=== PATIENT | female | born 1940 | race Caucasian/White ===

== ENCOUNTER 2018-01-05 00:04 | Emergency (ER) | payer MEDICARE, OTHER ==
[~2018-01-05] VITALS: Ht 154.9 cm; Wt 124.3 kg
[~2018-01-05 00:04] MED LIST: ACET500 PO; ACIDOPHILUS LA1 EACH PO; ALBIPROI; ALBU.083IS; ALBU3IS; ALBU90OI INH; ALBU90OI6 INH; ALBU90OI61 INH; ALBUIS IH; ASCO500 PO; ASPI325; ASPI325EC; ASPI81CH PO; ASPI81EC PO; AZIT250 PO; BECLOI16.8; BENA20; BENEFIBER PO; BUDE10.22 IH; CALC.25 PO; CEFD300 PO; CELE200 PO; CEPH500 PO; CETI5 PO; CETYLOZ PO; CHOL10002; CHOL10002 PO; CLIN150 PO; CROM10OPSO; CYAN1000 PO; CYTOTEC; Cyclobenzaprine5 MG PO; DIAZ5 PO; DILT120ER; DILTIAZEM 120 MG; DIPH50 PO; DOCU100 PO; ELIQUIS2.5 MG PO; FLUO20; FLUSAL1005; FLUSAL2505; FOLI1 PO; FOLIC ACID; FURO40; FURO40 PO; FURO80 PO; GABA100; GABA100 PO; GABA300 PO; GABA600 PO; GABAPENTIN; GABEPENTIN; GLYMET2.5; GLYMET2.5 PO; GLYMET5 PO; GUAR GUM; HYDACE5; HYDACE5 PO; HYDCOR20 PO; HYDR25SUP PR; INS70/30PN SC; INSLI100I SUBQ; INSUASPI SC; INSULANI SUBQ; INSULANPEN; INSULANPEN SC; IPRAIS; IPRAOI INH; IRON325 MG PO; ISODIN20 PO; ISOMON20 PO; ISOMON30; ISOMON30 PO; ISOSORBIDE; Iron Supplemen325 MG PO; KLOR; LANS15EC PO; LANS30EC; LANS30EC PO; LANTUS; LASIX; LEVFLO500; LIDO5TP TOP; LISI20; LISI20 PO; LISI5 PO; LISINOPRIL; LORA1 PO; MELO7.5; META400; METF500C PO; METO25 PO; METO25ER PO; METO5A; METO5A PO; METOPROLOL; MISO100 PO; MONT10T; MULVITMIND PO; NITR.4SL; NITRSPRAY; NOVOLOG; NYST100P; OLME20; OMEP20ER PO; OMEP40CA12 PO; ONDA4ODT; ONDA4ODT MM; OXYACE5T PO; OXYC5 PO; OXYGEN; OXYGEN NS; Oxygen; PANT40 PO; POTA10T PO; POTA8 PO; POTCHL10ER; PRED1; PRED1 PO; PRED20 PO; PRED5 PO; PROM25 PO; Prednisone20 MG PO; Prinivil10 MG PO; QUIN325; RAMI5; RXLORA1 PO; SIME80CH PO; SIMV10 PO; SIMV20; SIMV20 PO; SIMV5 PO; SIMVASTATIN; SPIR25; Senna8.6 MG PO; TIOT18; TRAM50 PO; TRIAOI; Toprol Xl25 MG PO; Tylenol325 MG PO; VERA100; VICOD; VITAMIN B12 PO; VITAMIN D; VITAMIN D PO; Ventolin5 MG/1 ML IH; Vitamin B-121000 MCG PO; WARF2; WARF2 PO; WARF3; WARF3 PO; WARF4; WARF4 PO; WARF5; WARF6; WARFARIN; Zofran Odt4 MG SL; Zofran Odt8 MG SL; [UNRECOGNIZED DRUG - OTHER]; [UNRECOGNIZED DRUG - OTHER]; [UNRECOGNIZED DRUG - OTHER]; [UNRECOGNIZED DRUG - OTHER] GT; [UNRECOGNIZED DRUG - OTHER] PO; [UNRECOGNIZED DRUG - OTHER] TOP
[2018-01-05 00:59] LABS: BASOPHILS ABSOLUTE AUTO 0.02 K/mm3 (0.00-0.23); BASOPHILS PERCENT AUTO 0 % (0-2); EOSINOPHILS ABSOLUTE AUTO 0.03 K/mm3 (0.00-0.68); EOSINOPHILS PERCENT AUTO 0 % (0-6); Hematocrit 27.1 % (33.0-51.0); Hemoglobin 9.5 g/dL (11.5-16.0); IMMATURE GRAN ABSOLUTE AUTO 0.21 K/mm3 (0.00-0.10); IMMATURE GRAN PERCENT AUTO 2 % (0-1); LYMPHOCYTES ABSOLUTE AUTO 1.76 K/mm3 (0.84-5.20); LYMPHOCYTES PERCENT AUTO 13 % (21-46); MONOCYTES ABSOLUTE AUTO 0.65 K/mm3 (0.16-1.47); MONOCYTES PERCENT AUTO 5 % (4-13); Mean Corpuscular HGB 31.8 pg (26.0-34.0); Mean Corpuscular HGB Conc 35.1 g/dL (31.5-36.5); Mean Corpuscular Volume 91 fL (80-100); Mean Platelet Volume 9.2 fL (9.1-12.4); NEUTROPHILS ABSOLUTE AUTO 11.13 K/mm3 (1.96-9.15); NEUTROPHILS PERCENT AUTO 81 % (41-73); Platelet Count 214 K/mm3 (150-400); RDW Coefficient Variation 13.2 % (11.7-14.2); RDW Standard Deviation 43.8 fL (35.1-46.3); Red Blood Cell Count 2.99 M/mm3 (3.80-5.20)
[2018-01-05 01:21] LABS: Alanine Aminotransfer (ALT/SGP 17 U/L (12-78); Albumin, Blood 2.7 g/dL (3.4-5.0); Albumin/Globulin Ratio 0.8 (0.8-1.8); Alk Phos 71 U/L (50-136); Anion Gap 8 mmol/L (6-16); Aspartate Aminotrans (AST/SGOT 7 U/L (12-37); Bilirubin, Total 0.3 mg/dL (0.1-1.0); Blood Urea Nitrogen 23 mg/dL (8-24); Bun/Creatinine Ratio 16.8 (12.0-20.0); CO2, Blood 30 mmol/L (21-32); Calcium, Blood 8.3 mg/dL (8.5-10.1); Chloride, Blood 83 mmol/L (98-108); Creatinine, Blood 1.37 mg/dL (0.40-1.00); Globulin, Blood 3.3 g/dL (2.2-4.0); Glomerular Filtration Rate 39 (60-); Glucose, Blood 345 mg/dL (70-99); Potassium, Blood 4.3 mmol/L (3.5-5.5); Sodium, Blood 121 mmol/L (136-145); Troponin I <0.015 ng/mL (0.000-0.040)
[2018-01-05 01:22] LABS: Base Excess Venous 8.2 mmol/L; Bicarbonate Venous 30.2 mmol/L (24.0-30.0); PCO2 Venous 50.1 mmHg (38-42); PO2 Venous 32.3 mmHg (38-42); pH Blood Venous 7.42 (7.34-7.37)
[2018-01-05 01:25] LABS: Source, Urine Clean Catch
[2018-01-05 01:27] LABS: Bilirubin, Urine Neg (Neg); Blood, Urine 2+ (Neg); Glucose Qualitative, Urine 4+ (Neg); Ketones, Urine Neg (Neg); Leukocyte Esterase, Urine Neg (Neg); Nitrite, Urine Neg (Neg); Protein, Urine 1+ (Neg); Specific Gravity, Urine 1.015 (1.003-1.022); Urobilinogen, Urine NORM (Normal)
[2018-01-05 01:28] LABS: Appearance, Urine Clear (Clear); Color, Urine Yellow (P-Yellow)
[2018-01-05 01:35] LABS: Bacteria Not Seen /hpf; Red Blood Cells, Urine 0-2 /hpf (0-2); Squamous Epithelial Cells Not Seen /hpf (Few); White Blood Cells, Urine Not Seen /hpf (0-5)
[2018-05-14] MEDS ORDERED: NOVOLOG (19:37)
[2018-05-14] MEDS ORDERED: BASAGLAR KWIKPEN (19:38)
[2018-06-11] MEDS ORDERED: ISOMON20 PO (14:28)
[2018-06-20] MEDS ORDERED: LISI5 PO (01:32)
[2018-08-08] MEDS ORDERED: METO25ER PO (16:05)
[2018-08-13] MEDS ORDERED: ACET325 PO (12:16)
[2018-08-13] MEDS ORDERED: Pedi-Dri 100,0060 GM TOP (12:28)
[2018-08-13] MEDS ORDERED: BUME2 PO (12:29)
[2018-08-13] MEDS ORDERED: MONISTAT 35 GM VAG (12:29)
[2018-08-13] MEDS ORDERED: LEVO750 PO (12:30)
[2018-08-18] MEDS ORDERED: Prilosec Otc20 MG PO (16:54)
[2018-09-08] MEDS ORDERED: ATOR40TA PO (12:06)
[2018-09-08] MEDS ORDERED: METO25ER PO (12:07)
[2018-09-15] MEDS ORDERED: ALBU3IS INH (14:48)
[2018-09-20] MEDS ORDERED: PRED20 PO (22:16)
[2018-09-21] MEDS ORDERED: ACTEMRA162 MG/0.9 SC (00:09)
[2018-09-21] MEDS ORDERED: INSULANPEN SC (00:17)
[2018-09-21] MEDS ORDERED: Humalog100 UNIT/1 SC (00:19)
[2018-09-29] MEDS ORDERED: Milk Of Ma400 MG/5 M PO (12:28)
[2018-09-29] MEDS ORDERED: Ferrous Sulfat325 M2 PO (12:29)
[2018-09-30] MEDS ORDERED: ONDA4ODT MM (12:58)
== END 2018-01-05 03:47 | disposition home or self-care (01) ==
LOC: ER 00:04
PROVIDERS: Emergency Medicine
DX: E87.1 Hypo-osmolality and hyponatremia (principal); Z88.0 Allergy status to penicillin; Z88.5 Allergy status to narcotic agent; Z88.1 Allergy status to other antibiotic agents; Z79.899 Other long term (current) drug therapy; Z79.82 Long term (current) use of aspirin; Z79.84 Long term (current) use of oral hypoglycemic drugs; E11.40 Type 2 diabetes mellitus with diabetic neuropathy, unspecified; J44.9 Chronic obstructive pulmonary disease, unspecified; J45.909 Unspecified asthma, uncomplicated
CPT/HCPCS: 36415; 71046; 80053; 81001; 82803; 84484; 85025; 93005; 93010; 96374; 99283; J2405; J7030; P9612

== ENCOUNTER 2018-03-25 12:42 | Emergency (ER) | payer MEDICARE, OTHER ==
[~2018-03-25] VITALS: Ht 154.9 cm; Wt 114.3 kg
[~2018-03-25 12:42] MED LIST changes: +Vitamin B-121000 MCG; -Vitamin B-121000 MCG PO
[2018-03-25 14:22] LABS: BASOPHILS ABSOLUTE AUTO 0.03 K/mm3 (0.00-0.23); BASOPHILS PERCENT AUTO 0 % (0-2); EOSINOPHILS ABSOLUTE AUTO 0.05 K/mm3 (0.00-0.68); EOSINOPHILS PERCENT AUTO 0 % (0-6); Hemoglobin 10.8 g/dL (11.5-16.0); IMMATURE GRAN ABSOLUTE AUTO 0.15 K/mm3 (0.00-0.10); IMMATURE GRAN PERCENT AUTO 1 % (0-1); LYMPHOCYTES ABSOLUTE AUTO 2.31 K/mm3 (0.84-5.20); LYMPHOCYTES PERCENT AUTO 16 % (21-46); MONOCYTES ABSOLUTE AUTO 0.72 K/mm3 (0.16-1.47); MONOCYTES PERCENT AUTO 5 % (4-13); Mean Corpuscular HGB 32.2 pg (26.0-34.0); Mean Corpuscular HGB Conc 34.8 g/dL (31.5-36.5); Mean Corpuscular Volume 93 fL (80-100); Mean Platelet Volume 9.1 fL (9.1-12.4); NEUTROPHILS ABSOLUTE AUTO 10.82 K/mm3 (1.96-9.15); NEUTROPHILS PERCENT AUTO 77 % (41-73); Platelet Count 299 K/mm3 (150-400); RDW Coefficient Variation 12.8 % (11.7-14.2); RDW Standard Deviation 43.4 fL (35.1-46.3); Red Blood Cell Count 3.35 M/mm3 (3.80-5.20); White Blood Cell Count 14.08 K/mm3 (4.00-11.30)
[2018-03-25 14:46] LABS: Alanine Aminotransfer (ALT/SGP 14 U/L (12-78); Albumin, Blood 2.8 g/dL (3.4-5.0); Albumin/Globulin Ratio 0.8 (0.8-1.8); Alk Phos 92 U/L (50-136); Anion Gap 10 mmol/L (6-16); Aspartate Aminotrans (AST/SGOT 7 U/L (12-37); Bilirubin, Total 0.4 mg/dL (0.1-1.0); Blood Urea Nitrogen 16 mg/dL (8-24); Bun/Creatinine Ratio 13.3 (12.0-20.0); CO2, Blood 27 mmol/L (21-32); Calcium, Blood 8.5 mg/dL (8.5-10.1); Chloride, Blood 88 mmol/L (98-108); Globulin, Blood 3.5 g/dL (2.2-4.0); Glomerular Filtration Rate 46 (60-); Glucose, Blood 312 mg/dL (70-99); Potassium, Blood 3.9 mmol/L (3.5-5.5); Sodium, Blood 125 mmol/L (136-145); Total Protein, Blood 6.3 g/dL (6.4-8.2)
[2018-03-25 14:48] LABS: Troponin I <0.015 ng/mL (0.000-0.040)
[2018-03-25 15:15] LABS: Source, Urine Clean Catch
[2018-03-25 15:18] LABS: Bilirubin, Urine Neg (Neg); Blood, Urine 1+ (Neg); Glucose Qualitative, Urine 3+ (Neg); Ketones, Urine Neg (Neg); Leukocyte Esterase, Urine 1+ (Neg); Nitrite, Urine Neg (Neg); Protein, Urine 1+ (Neg); Specific Gravity, Urine 1.015 (1.003-1.022); Urobilinogen, Urine NORM (Normal)
[2018-03-25 15:22] LABS: Appearance, Urine Clear (Clear); Color, Urine Yellow (P-Yellow)
[2018-03-25 15:27] LABS: Bacteria Few /hpf; Squamous Epithelial Cells Few /hpf (Few)
== END 2018-03-25 16:17 | disposition home or self-care (01) ==
LOC: ER 12:42
PROVIDERS: Emergency Medicine; Physician Assistant
DX: R55 Syncope and collapse (principal); E87.1 Hypo-osmolality and hyponatremia; E11.40 Type 2 diabetes mellitus with diabetic neuropathy, unspecified; E66.9 Obesity, unspecified; J44.9 Chronic obstructive pulmonary disease, unspecified; Z79.84 Long term (current) use of oral hypoglycemic drugs; Z88.0 Allergy status to penicillin; Z88.5 Allergy status to narcotic agent; Z88.8 Allergy status to other drugs, medicaments and biological substances; Z88.1 Allergy status to other antibiotic agents; Z79.899 Other long term (current) drug therapy; Z79.82 Long term (current) use of aspirin
CPT/HCPCS: 36415; 80053; 81001; 84484; 85025; 87086; 93005; 93010; 96360; 99283; J7030

== ENCOUNTER 2018-06-11 14:01 | Inpatient (IN) | payer MEDICARE, OTHER ==
[~2018-06-11] VITALS: Ht 154.9 cm; Wt 123.4 kg
[~2018-06-11 14:01] MED LIST changes: +BASAGLAR KWIKPEN; -Vitamin B-121000 MCG; +Vitamin B-121000 MCG PO
[2018-06-11] MEDS ORDERED: ELIQUIS5 MG PO (14:25)
[2018-06-11] MEDS ORDERED: CEFD300 PO (14:27)
[2018-06-11] MEDS ORDERED: RANO500T PO (14:27)
[2018-06-11] MEDS ORDERED: ISODIN20 PO (14:28)
[2018-06-11 15:00] LABS: BASOPHILS ABSOLUTE AUTO 0.02 K/mm3 (0.00-0.23); BASOPHILS PERCENT AUTO 0 % (0-2); EOSINOPHILS ABSOLUTE AUTO 0.05 K/mm3 (0.00-0.68); EOSINOPHILS PERCENT AUTO 0 % (0-6); Hematocrit 31.3 % (33.0-51.0); Hemoglobin 10.5 g/dL (11.5-16.0); IMMATURE GRAN ABSOLUTE AUTO 0.19 K/mm3 (0.00-0.10); IMMATURE GRAN PERCENT AUTO 1 % (0-1); LYMPHOCYTES ABSOLUTE AUTO 1.02 K/mm3 (0.84-5.20); LYMPHOCYTES PERCENT AUTO 6 % (21-46); MONOCYTES ABSOLUTE AUTO 0.71 K/mm3 (0.16-1.47); MONOCYTES PERCENT AUTO 5 % (4-13); Mean Corpuscular HGB 31.4 pg (26.0-34.0); Mean Corpuscular HGB Conc 33.5 g/dL (31.5-36.5); Mean Corpuscular Volume 94 fL (80-100); Mean Platelet Volume 9.4 fL (9.1-12.4); NEUTROPHILS ABSOLUTE AUTO 13.91 K/mm3 (1.96-9.15); NEUTROPHILS PERCENT AUTO 88 % (41-73); Platelet Count 302 K/mm3 (150-400); RDW Coefficient Variation 14.1 % (11.7-14.2); RDW Standard Deviation 47.8 fL (35.1-46.3); Red Blood Cell Count 3.34 M/mm3 (3.80-5.20)
[2018-06-11 15:03] LABS: Albumin, Blood 2.8 g/dL (3.4-5.0); Albumin/Globulin Ratio 0.8 (0.8-1.8); Bilirubin, Total 0.4 mg/dL (0.1-1.0); Bun/Creatinine Ratio 10.2 (12.0-20.0); Calcium, Blood 8.5 mg/dL (8.5-10.1); Creatinine, Blood 0.99 mg/dL (0.40-1.00); Globulin, Blood 3.6 g/dL (2.2-4.0); Potassium, Blood 3.7 mmol/L (3.5-5.5); Total Protein, Blood 6.4 g/dL (6.4-8.2)
[2018-06-11 16:59] LABS: Source, Urine Clean Catch
[2018-06-11 17:13] LABS: Bilirubin, Urine Neg (Neg); Blood, Urine 1+ (Neg); Glucose Qualitative, Urine 2+ (Neg); Ketones, Urine Neg (Neg); Leukocyte Esterase, Urine 1+ (Neg); Nitrite, Urine Neg (Neg); Protein, Urine Neg (Neg); Specific Gravity, Urine 1.005 (1.003-1.022); Urobilinogen, Urine NORM (Normal)
[2018-06-11 17:18] LABS: Appearance, Urine Cloudy (Clear); Color, Urine Yellow (P-Yellow)
[2018-06-11 17:20] LABS: Bacteria Few /hpf; Red Blood Cells, Urine 0-2 /hpf (0-2); Squamous Epithelial Cells Mod /hpf (Few); White Blood Cells, Urine 0-2 /hpf (0-5)
[2018-06-11 20:16] LABS: International Normalized Ratio 1.01; Prothrombin Time Results 10.4 Sec (9.7-11.5)
[2018-06-11] MEDS ORDERED: PRED10 PO (21:01)
[2018-06-12 04:21] LABS: Hematocrit 30.3 % (33.0-51.0); Hemoglobin 10.4 g/dL (11.5-16.0); Mean Corpuscular HGB 31.5 pg (26.0-34.0); Mean Corpuscular HGB Conc 34.3 g/dL (31.5-36.5); Mean Corpuscular Volume 92 fL (80-100); Mean Platelet Volume 9.5 fL (9.1-12.4); Platelet Count 292 K/mm3 (150-400); White Blood Cell Count 15.85 K/mm3 (4.00-11.30)
[2018-06-12 04:36] LABS: Bun/Creatinine Ratio 11.8 (12.0-20.0); Calcium, Blood 8.4 mg/dL (8.5-10.1); Creatinine, Blood 1.1 mg/dL (0.40-1.00); Potassium, Blood 4.1 mmol/L (3.5-5.5)
[2018-06-12 17:33] LABS: Glucose, Blood 469 mg/dL (70-99)
[2018-06-13 04:42] LABS: BASOPHILS ABSOLUTE AUTO 0.02 K/mm3 (0.00-0.23); BASOPHILS PERCENT AUTO 0 % (0-2); EOSINOPHILS ABSOLUTE AUTO 0.01 K/mm3 (0.00-0.68); EOSINOPHILS PERCENT AUTO 0 % (0-6); Hematocrit 27.1 % (33.0-51.0); Hemoglobin 9.2 g/dL (11.5-16.0); IMMATURE GRAN ABSOLUTE AUTO 0.24 K/mm3 (0.00-0.10); IMMATURE GRAN PERCENT AUTO 1 % (0-1); LYMPHOCYTES ABSOLUTE AUTO 1.66 K/mm3 (0.84-5.20); LYMPHOCYTES PERCENT AUTO 8 % (21-46); MONOCYTES ABSOLUTE AUTO 0.93 K/mm3 (0.16-1.47); MONOCYTES PERCENT AUTO 4 % (4-13); Mean Corpuscular HGB 31.4 pg (26.0-34.0); Mean Corpuscular HGB Conc 33.9 g/dL (31.5-36.5); Mean Corpuscular Volume 93 fL (80-100); Mean Platelet Volume 9.3 fL (9.1-12.4); NEUTROPHILS ABSOLUTE AUTO 18.38 K/mm3 (1.96-9.15); NEUTROPHILS PERCENT AUTO 87 % (41-73); Platelet Count 281 K/mm3 (150-400); RDW Coefficient Variation 13.9 % (11.7-14.2); RDW Standard Deviation 47.1 fL (35.1-46.3); Red Blood Cell Count 2.93 M/mm3 (3.80-5.20); White Blood Cell Count 21.24 K/mm3 (4.00-11.30)
[2018-06-13 05:03] LABS: Bun/Creatinine Ratio 15.3 (12.0-20.0); Calcium, Blood 8.6 mg/dL (8.5-10.1); Creatinine, Blood 1.31 mg/dL (0.40-1.00); Potassium, Blood 3.8 mmol/L (3.5-5.5)
[2018-06-14 10:07] LABS: Hematocrit 28.9 % (33.0-51.0); Hemoglobin 9.6 g/dL (11.5-16.0)
[2018-06-14] MEDS ORDERED: Cephalexin500 MG PO (11:17)
[2018-06-14] MEDS ORDERED: Humalog100 UNIT/1 SC (11:18)
[2018-06-14] MEDS ORDERED: INSDET100 SC (11:19)
== END 2018-06-14 13:06 | disposition home or self-care (01) | DRG 189 ==
LOC: ER 14:01 → PCU 14:02 → MEDS 20:25 → PCU 20:41 → MEDS 06-13 14:49 → ENPENDDIS 06-14 09:41 → MEDS 06-14 13:06
PROVIDERS: Emergency Medicine; Hospitalist; Nurse Practitioner Acute Care
DX: J96.21 Acute and chronic respiratory failure with hypoxia (principal); I13.0 Hypertensive heart and chronic kidney disease with heart failure and stage 1 through stage 4 chronic kidney disease, or unspecified chronic kidney disease; I50.40 Unspecified combined systolic (congestive) and diastolic (congestive) heart failure; Z68.43 Body mass index [BMI] 50.0-59.9, adult; N39.0 Urinary tract infection, site not specified; E87.1 Hypo-osmolality and hyponatremia; J44.1 Chronic obstructive pulmonary disease with (acute) exacerbation; B96.20 Unspecified Escherichia coli [E. coli] as the cause of diseases classified elsewhere; I48.91 Unspecified atrial fibrillation; I25.10 Atherosclerotic heart disease of native coronary artery without angina pectoris; M35.3 Polymyalgia rheumatica; E11.22 Type 2 diabetes mellitus with diabetic chronic kidney disease; N18.9 Chronic kidney disease, unspecified; E11.40 Type 2 diabetes mellitus with diabetic neuropathy, unspecified; M19.90 Unspecified osteoarthritis, unspecified site; E66.01 Morbid (severe) obesity due to excess calories; I89.0 Lymphedema, not elsewhere classified; K64.9 Unspecified hemorrhoids; M31.6 Other giant cell arteritis; Z79.4 Long term (current) use of insulin; Z87.11 Personal history of peptic ulcer disease; Z93.3 Colostomy status; Z99.81 Dependence on supplemental oxygen; Z86.718 Personal history of other venous thrombosis and embolism; Z79.01 Long term (current) use of anticoagulants; Z79.84 Long term (current) use of oral hypoglycemic drugs; Z79.82 Long term (current) use of aspirin; Z79.899 Other long term (current) drug therapy; Z88.1 Allergy status to other antibiotic agents; Z88.5 Allergy status to narcotic agent; Z88.0 Allergy status to penicillin; Z88.8 Allergy status to other drugs, medicaments and biological substances
CPT/HCPCS: 36415; 71046; 74176; 80048; 80053; 81001; 82947; 83735; 83880; 84484; 85014; 85018; 85025; 85027; 85610; 87077; 87086; 87186; 93306; 94640; 94760; 96365; 96375; 99285-25; J0456; J1940; J2930; J7050

== ENCOUNTER 2018-06-20 00:55 | Emergency (ER) | payer MEDICARE, OTHER ==
[~2018-06-20] VITALS: Ht 154.9 cm; Wt 124.7 kg
[~2018-06-20 00:55] MED LIST changes: +Cephalexin500 MG PO; +ELIQUIS5 MG PO; +Humalog100 UNIT/1 SC; +INSDET100 SC; +PRED10 PO; +RANO500T PO
[2018-06-20 01:26] LABS: BASOPHILS ABSOLUTE AUTO 0.03 K/mm3 (0.00-0.23); BASOPHILS PERCENT AUTO 0 % (0-2); EOSINOPHILS PERCENT AUTO 1 % (0-6); Hematocrit 29.4 % (33.0-51.0); Hemoglobin 10.3 g/dL (11.5-16.0); IMMATURE GRAN ABSOLUTE AUTO 0.13 K/mm3 (0.00-0.10); IMMATURE GRAN PERCENT AUTO 1 % (0-1); LYMPHOCYTES ABSOLUTE AUTO 2.02 K/mm3 (0.84-5.20); LYMPHOCYTES PERCENT AUTO 14 % (21-46); MONOCYTES ABSOLUTE AUTO 0.64 K/mm3 (0.16-1.47); MONOCYTES PERCENT AUTO 5 % (4-13); Mean Corpuscular HGB 31.6 pg (26.0-34.0); Mean Platelet Volume 8.9 fL (9.1-12.4); NEUTROPHILS ABSOLUTE AUTO 11.45 K/mm3 (1.96-9.15); NEUTROPHILS PERCENT AUTO 80 % (41-73); Platelet Count 256 K/mm3 (150-400); RDW Coefficient Variation 13.4 % (11.7-14.2); RDW Standard Deviation 44.9 fL (35.1-46.3); Red Blood Cell Count 3.26 M/mm3 (3.80-5.20); White Blood Cell Count 14.37 K/mm3 (4.00-11.30)
[2018-06-20 01:29] LABS: Mean Corpuscular Volume 90 fL (80-100)
[2018-06-20] MEDS ORDERED: LANS30EC PO (01:31)
[2018-06-20] MEDS ORDERED: LISI5 (01:32)
[2018-06-20 01:42] LABS: Albumin, Blood 2.8 g/dL (3.4-5.0); Albumin/Globulin Ratio 0.8 (0.8-1.8); Bilirubin, Total 0.5 mg/dL (0.1-1.0); Bun/Creatinine Ratio 11.2 (12.0-20.0); Calcium, Blood 7.4 mg/dL (8.5-10.1); Creatinine, Blood 1.25 mg/dL (0.40-1.00); Globulin, Blood 3.7 g/dL (2.2-4.0); Potassium, Blood 3.4 mmol/L (3.5-5.5); Total Protein, Blood 6.5 g/dL (6.4-8.2)
[2018-06-20 03:58] LABS: Source, Urine Clean Catch
[2018-06-20 03:59] LABS: Bilirubin, Urine Neg (Neg); Blood, Urine 1+ (Neg); Glucose Qualitative, Urine Neg (Neg); Ketones, Urine Neg (Neg); Leukocyte Esterase, Urine Neg (Neg); Nitrite, Urine Neg (Neg); Protein, Urine 1+ (Neg); Urobilinogen, Urine NORM (Normal)
[2018-06-20 04:05] LABS: Appearance, Urine Clear (Clear); Bacteria Rare /hpf; Color, Urine Yellow (P-Yellow); Squamous Epithelial Cells Few /hpf (Few); White Blood Cells, Urine Not Seen /hpf (0-5)
[2018-06-20] MEDS ORDERED: ONDA4ODT MM (04:23)
== END 2018-06-20 04:40 | disposition home or self-care (01) ==
LOC: ER 00:55
PROVIDERS: Emergency Medicine
DX: R10.32 Left lower quadrant pain (principal); E87.1 Hypo-osmolality and hyponatremia; E83.51 Hypocalcemia; D64.9 Anemia, unspecified; J44.9 Chronic obstructive pulmonary disease, unspecified; E11.40 Type 2 diabetes mellitus with diabetic neuropathy, unspecified; Z88.0 Allergy status to penicillin; Z88.5 Allergy status to narcotic agent; Z91.048 Other nonmedicinal substance allergy status; Z88.1 Allergy status to other antibiotic agents; Z88.8 Allergy status to other drugs, medicaments and biological substances; Z79.899 Other long term (current) drug therapy; Z79.82 Long term (current) use of aspirin; Z79.4 Long term (current) use of insulin
CPT/HCPCS: 36415; 51702; 74176; 80053; 81001; 85025; 96361; 96365; 96375; 99285-25; J0610; J2405; J7030

== ENCOUNTER 2018-08-14 14:18 | Inpatient (IN) | payer MEDICARE, OTHER ==
[~2018-08-14] VITALS: Ht 154.9 cm; Wt 110.8 kg
[~2018-08-14 14:18] MED LIST changes: +ACET325 PO; +BUME2 PO; +LEVO750 PO; +MONISTAT 35 GM VAG; +Pedi-Dri 100,0060 GM TOP
[2018-08-14 15:38] LABS: BASOPHILS ABSOLUTE AUTO 0.03 K/mm3 (0.00-0.23); BASOPHILS PERCENT AUTO 0 % (0-2); EOSINOPHILS ABSOLUTE AUTO 0.11 K/mm3 (0.00-0.68); EOSINOPHILS PERCENT AUTO 1 % (0-6); Hematocrit 25.8 % (33.0-51.0); Hemoglobin 8.8 g/dL (11.5-16.0); IMMATURE GRAN ABSOLUTE AUTO 0.12 K/mm3 (0.00-0.10); IMMATURE GRAN PERCENT AUTO 1 % (0-1); LYMPHOCYTES ABSOLUTE AUTO 1.19 K/mm3 (0.84-5.20); LYMPHOCYTES PERCENT AUTO 12 % (21-46); MONOCYTES ABSOLUTE AUTO 0.64 K/mm3 (0.16-1.47); MONOCYTES PERCENT AUTO 7 % (4-13); Mean Corpuscular HGB 31.7 pg (26.0-34.0); Mean Corpuscular HGB Conc 34.1 g/dL (31.5-36.5); Mean Corpuscular Volume 93 fL (80-100); NEUTROPHILS ABSOLUTE AUTO 7.48 K/mm3 (1.96-9.15); NEUTROPHILS PERCENT AUTO 78 % (41-73); Platelet Count 341 K/mm3 (150-400); RDW Coefficient Variation 14.4 % (11.7-14.2); RDW Standard Deviation 48.7 fL (35.1-46.3); Red Blood Cell Count 2.78 M/mm3 (3.80-5.20); White Blood Cell Count 9.57 K/mm3 (4.00-11.30)
[2018-08-14 15:40] LABS: Base Excess Venous 4.4 mmol/L; Bicarbonate Venous 28.1 mmol/L (24.0-30.0); PCO2 Venous 40.1 mmHg (38-42); PO2 Venous 143 mmHg (38-42); pH Blood Venous 7.46 (7.34-7.37)
[2018-08-14 15:59] LABS: Albumin, Blood 2.4 g/dL (3.4-5.0); Albumin/Globulin Ratio 0.7 (0.8-1.8); Bilirubin, Total 0.3 mg/dL (0.1-1.0); Bun/Creatinine Ratio 8.3 (12.0-20.0); Calcium, Blood 7.5 mg/dL (8.5-10.1); Creatinine, Blood 1.2 mg/dL (0.40-1.00); Globulin, Blood 3.4 g/dL (2.2-4.0); Potassium, Blood 4.3 mmol/L (3.5-5.5); Total Protein, Blood 5.8 g/dL (6.4-8.2); Troponin I 0.063 ng/mL (0.000-0.040)
[2018-08-14 18:09] LABS: Magnesium, Blood 1.4 mg/dL (1.6-2.4); Troponin I 0.064 ng/mL (0.000-0.040)
[2018-08-15 03:59] LABS: Source, Urine Catheter
[2018-08-15 04:01] LABS: Bilirubin, Urine Neg (Neg); Blood, Urine 1+ (Neg); Glucose Qualitative, Urine 2+ (Neg); Ketones, Urine 2+ (Neg); Leukocyte Esterase, Urine Neg (Neg); Nitrite, Urine Neg (Neg); Protein, Urine 2+ (Neg); Urobilinogen, Urine NORM (Normal)
[2018-08-15 04:10] LABS: Amorphous Light (0-Heavy); Appearance, Urine Clear (Clear); Bacteria Not Seen /hpf; Color, Urine Yellow (P-Yellow); Red Blood Cells, Urine Rare /hpf (0-2); Squamous Epithelial Cells Not Seen /hpf (Few); White Blood Cells, Urine Not Seen /hpf (0-5)
[2018-08-15 06:14] LABS: BASOPHILS ABSOLUTE AUTO 0.01 K/mm3 (0.00-0.23); BASOPHILS PERCENT AUTO 0 % (0-2); EOSINOPHILS ABSOLUTE AUTO 0.01 K/mm3 (0.00-0.68); EOSINOPHILS PERCENT AUTO 0 % (0-6); Hematocrit 26.8 % (33.0-51.0); IMMATURE GRAN ABSOLUTE AUTO 0.07 K/mm3 (0.00-0.10); IMMATURE GRAN PERCENT AUTO 1 % (0-1); LYMPHOCYTES ABSOLUTE AUTO 0.27 K/mm3 (0.84-5.20); LYMPHOCYTES PERCENT AUTO 4 % (21-46); MONOCYTES ABSOLUTE AUTO 0.04 K/mm3 (0.16-1.47); MONOCYTES PERCENT AUTO 1 % (4-13); Mean Corpuscular HGB 30.8 pg (26.0-34.0); Mean Corpuscular HGB Conc 33.6 g/dL (31.5-36.5); Mean Corpuscular Volume 92 fL (80-100); Mean Platelet Volume 8.9 fL (9.1-12.4); NEUTROPHILS ABSOLUTE AUTO 6.78 K/mm3 (1.96-9.15); NEUTROPHILS PERCENT AUTO 94 % (41-73); Platelet Count 317 K/mm3 (150-400); RDW Coefficient Variation 14.4 % (11.7-14.2); RDW Standard Deviation 48.1 fL (35.1-46.3); Red Blood Cell Count 2.92 M/mm3 (3.80-5.20); White Blood Cell Count 7.18 K/mm3 (4.00-11.30)
[2018-08-15 06:36] LABS: Bun/Creatinine Ratio 9.3 (12.0-20.0); Calcium, Blood 7.5 mg/dL (8.5-10.1); Creatinine, Blood 1.18 mg/dL (0.40-1.00); Potassium, Blood 5.2 mmol/L (3.5-5.5); Troponin I 0.03 ng/mL (0.000-0.040)
[2018-08-16 03:56] LABS: BASOPHILS PERCENT AUTO 0 % (0-2); EOSINOPHILS PERCENT AUTO 0 % (0-6); Hematocrit 27.2 % (33.0-51.0); Hemoglobin 9.1 g/dL (11.5-16.0); IMMATURE GRAN ABSOLUTE AUTO 0.19 K/mm3 (0.00-0.10); IMMATURE GRAN PERCENT AUTO 2 % (0-1); LYMPHOCYTES ABSOLUTE AUTO 0.35 K/mm3 (0.84-5.20); LYMPHOCYTES PERCENT AUTO 4 % (21-46); MONOCYTES ABSOLUTE AUTO 0.19 K/mm3 (0.16-1.47); MONOCYTES PERCENT AUTO 2 % (4-13); Mean Corpuscular HGB Conc 33.5 g/dL (31.5-36.5); Mean Corpuscular Volume 96 fL (80-100); Mean Platelet Volume 8.7 fL (9.1-12.4); NEUTROPHILS ABSOLUTE AUTO 8.48 K/mm3 (1.96-9.15); NEUTROPHILS PERCENT AUTO 92 % (41-73); Platelet Count 325 K/mm3 (150-400); RDW Coefficient Variation 14.5 % (11.7-14.2); RDW Standard Deviation 50.8 fL (35.1-46.3); Red Blood Cell Count 2.84 M/mm3 (3.80-5.20); White Blood Cell Count 9.21 K/mm3 (4.00-11.30)
[2018-08-16 04:15] LABS: Albumin, Blood 2.5 g/dL (3.4-5.0); Anion Gap 8 mmol/L (6-16); Blood Urea Nitrogen 16 mg/dL (8-24); Bun/Creatinine Ratio 13.9 (12.0-20.0); CO2, Blood 27 mmol/L (21-32); Calcium, Blood 7.5 mg/dL (8.5-10.1); Chloride, Blood 89 mmol/L (98-108); Creatinine, Blood 1.15 mg/dL (0.40-1.00); Glomerular Filtration Rate 48 (60-); Glucose, Blood 242 mg/dL (70-99); Phosphorus, Blood 3.4 mg/dL (2.5-4.9); Potassium, Blood 4.8 mmol/L (3.5-5.5); Sodium, Blood 124 mmol/L (136-145)
[2018-08-16 18:01] LABS: Vancomycin, Trough 15.4 ug/mL (5.0-10.0)
[2018-08-17 05:37] LABS: Albumin, Blood 2.6 g/dL (3.4-5.0); Anion Gap 8 mmol/L (6-16); Blood Urea Nitrogen 21 mg/dL (8-24); Bun/Creatinine Ratio 17.5 (12.0-20.0); CO2, Blood 29 mmol/L (21-32); Calcium, Blood 7.6 mg/dL (8.5-10.1); Chloride, Blood 91 mmol/L (98-108); Glomerular Filtration Rate 46 (60-); Glucose, Blood 263 mg/dL (70-99); Phosphorus, Blood 2.9 mg/dL (2.5-4.9); Potassium, Blood 4.6 mmol/L (3.5-5.5); Sodium, Blood 128 mmol/L (136-145)
[2018-08-18 05:37] LABS: BASOPHILS PERCENT AUTO 0 % (0-2); EOSINOPHILS PERCENT AUTO 0 % (0-6); Hematocrit 27.1 % (33.0-51.0); Hemoglobin 8.8 g/dL (11.5-16.0); IMMATURE GRAN ABSOLUTE AUTO 0.13 K/mm3 (0.00-0.10); IMMATURE GRAN PERCENT AUTO 2 % (0-1); LYMPHOCYTES ABSOLUTE AUTO 0.37 K/mm3 (0.84-5.20); LYMPHOCYTES PERCENT AUTO 5 % (21-46); MONOCYTES ABSOLUTE AUTO 0.15 K/mm3 (0.16-1.47); MONOCYTES PERCENT AUTO 2 % (4-13); Mean Corpuscular HGB 30.8 pg (26.0-34.0); Mean Corpuscular HGB Conc 32.5 g/dL (31.5-36.5); Mean Corpuscular Volume 95 fL (80-100); NEUTROPHILS ABSOLUTE AUTO 6.16 K/mm3 (1.96-9.15); NEUTROPHILS PERCENT AUTO 91 % (41-73); Platelet Count 291 K/mm3 (150-400); RDW Coefficient Variation 14.6 % (11.7-14.2); Red Blood Cell Count 2.86 M/mm3 (3.80-5.20); White Blood Cell Count 6.81 K/mm3 (4.00-11.30)
[2018-08-18 06:17] LABS: Magnesium, Blood 2.1 mg/dL (1.6-2.4)
[2018-08-18 06:25] LABS: Bun/Creatinine Ratio 18.8 (12.0-20.0); Calcium, Blood 7.6 mg/dL (8.5-10.1); Creatinine, Blood 1.28 mg/dL (0.40-1.00); Potassium, Blood 4.3 mmol/L (3.5-5.5)
[2018-08-18] MEDS ORDERED: OMEPRAZOLE MAGN20 MG PO (16:53)
[2018-08-18] MEDS ORDERED: Prilosec Otc20 MG (16:54)
[2018-08-19 04:46] LABS: BASOPHILS PERCENT AUTO 0 % (0-2); EOSINOPHILS ABSOLUTE AUTO 0.01 K/mm3 (0.00-0.68); EOSINOPHILS PERCENT AUTO 0 % (0-6); Hematocrit 27.5 % (33.0-51.0); Hemoglobin 8.9 g/dL (11.5-16.0); IMMATURE GRAN ABSOLUTE AUTO 0.16 K/mm3 (0.00-0.10); IMMATURE GRAN PERCENT AUTO 2 % (0-1); LYMPHOCYTES ABSOLUTE AUTO 1.28 K/mm3 (0.84-5.20); LYMPHOCYTES PERCENT AUTO 13 % (21-46); MONOCYTES ABSOLUTE AUTO 0.66 K/mm3 (0.16-1.47); MONOCYTES PERCENT AUTO 7 % (4-13); Mean Corpuscular HGB 30.5 pg (26.0-34.0); Mean Corpuscular HGB Conc 32.4 g/dL (31.5-36.5); Mean Corpuscular Volume 94 fL (80-100); Mean Platelet Volume 8.8 fL (9.1-12.4); NEUTROPHILS ABSOLUTE AUTO 7.56 K/mm3 (1.96-9.15); NEUTROPHILS PERCENT AUTO 78 % (41-73); Platelet Count 266 K/mm3 (150-400); RDW Coefficient Variation 14.4 % (11.7-14.2); RDW Standard Deviation 50.4 fL (35.1-46.3); Red Blood Cell Count 2.92 M/mm3 (3.80-5.20); White Blood Cell Count 9.67 K/mm3 (4.00-11.30)
[2018-08-19 05:13] LABS: Albumin, Blood 2.8 g/dL (3.4-5.0); Anion Gap 8 mmol/L (6-16); Blood Urea Nitrogen 30 mg/dL (8-24); Bun/Creatinine Ratio 23.3 (12.0-20.0); CO2, Blood 33 mmol/L (21-32); Calcium, Blood 8.3 mg/dL (8.5-10.1); Chloride, Blood 90 mmol/L (98-108); Creatinine, Blood 1.29 mg/dL (0.40-1.00); Glomerular Filtration Rate 42 (60-); Glucose, Blood 261 mg/dL (70-99); Phosphorus, Blood 2.9 mg/dL (2.5-4.9); Potassium, Blood 4.2 mmol/L (3.5-5.5); Sodium, Blood 131 mmol/L (136-145)
[2018-08-20 06:36] LABS: Hematocrit 28.8 % (33.0-51.0); Hemoglobin 9.4 g/dL (11.5-16.0)
[2018-08-20 06:51] LABS: Calcium, Blood 8.5 mg/dL (8.5-10.1); Creatinine, Blood 1.29 mg/dL (0.40-1.00); Potassium, Blood 3.7 mmol/L (3.5-5.5)
[2018-08-20 11:13] LABS: Bun/Creatinine Ratio 21.5 (12.0-20.0); Calcium, Blood 8.3 mg/dL (8.5-10.1); Creatinine, Blood 1.49 mg/dL (0.40-1.00); Potassium, Blood 3.3 mmol/L (3.5-5.5)
[2018-08-21 05:39] LABS: BASOPHILS PERCENT AUTO 0 % (0-2); EOSINOPHILS ABSOLUTE AUTO 0.02 K/mm3 (0.00-0.68); EOSINOPHILS PERCENT AUTO 0 % (0-6); Hemoglobin 9.1 g/dL (11.5-16.0); IMMATURE GRAN ABSOLUTE AUTO 0.06 K/mm3 (0.00-0.10); IMMATURE GRAN PERCENT AUTO 1 % (0-1); LYMPHOCYTES ABSOLUTE AUTO 1.26 K/mm3 (0.84-5.20); LYMPHOCYTES PERCENT AUTO 15 % (21-46); MONOCYTES ABSOLUTE AUTO 0.41 K/mm3 (0.16-1.47); MONOCYTES PERCENT AUTO 5 % (4-13); Mean Corpuscular HGB 31.6 pg (26.0-34.0); Mean Corpuscular HGB Conc 33.7 g/dL (31.5-36.5); Mean Corpuscular Volume 94 fL (80-100); Mean Platelet Volume 8.7 fL (9.1-12.4); NEUTROPHILS ABSOLUTE AUTO 6.67 K/mm3 (1.96-9.15); NEUTROPHILS PERCENT AUTO 79 % (41-73); Platelet Count 226 K/mm3 (150-400); RDW Coefficient Variation 14.2 % (11.7-14.2); Red Blood Cell Count 2.88 M/mm3 (3.80-5.20); White Blood Cell Count 8.42 K/mm3 (4.00-11.30)
[2018-08-21 06:00] LABS: Albumin, Blood 2.7 g/dL (3.4-5.0); Bilirubin, Total 0.5 mg/dL (0.1-1.0); Bun/Creatinine Ratio 22.5 (12.0-20.0); Calcium, Blood 8.5 mg/dL (8.5-10.1); Creatinine, Blood 1.38 mg/dL (0.40-1.00); Globulin, Blood 2.7 g/dL (2.2-4.0); Magnesium, Blood 1.8 mg/dL (1.6-2.4); Potassium, Blood 3.4 mmol/L (3.5-5.5); Total Protein, Blood 5.4 g/dL (6.4-8.2)
[2018-08-22 04:49] LABS: BASOPHILS PERCENT AUTO 0 % (0-2); EOSINOPHILS ABSOLUTE AUTO 0.03 K/mm3 (0.00-0.68); EOSINOPHILS PERCENT AUTO 0 % (0-6); Hematocrit 27.4 % (33.0-51.0); Hemoglobin 9.2 g/dL (11.5-16.0); IMMATURE GRAN ABSOLUTE AUTO 0.05 K/mm3 (0.00-0.10); IMMATURE GRAN PERCENT AUTO 1 % (0-1); LYMPHOCYTES ABSOLUTE AUTO 1.57 K/mm3 (0.84-5.20); LYMPHOCYTES PERCENT AUTO 19 % (21-46); MONOCYTES ABSOLUTE AUTO 0.48 K/mm3 (0.16-1.47); MONOCYTES PERCENT AUTO 6 % (4-13); Mean Corpuscular HGB 31.8 pg (26.0-34.0); Mean Corpuscular HGB Conc 33.6 g/dL (31.5-36.5); Mean Corpuscular Volume 95 fL (80-100); Mean Platelet Volume 8.6 fL (9.1-12.4); NEUTROPHILS ABSOLUTE AUTO 6.11 K/mm3 (1.96-9.15); NEUTROPHILS PERCENT AUTO 74 % (41-73); Platelet Count 212 K/mm3 (150-400); RDW Coefficient Variation 14.2 % (11.7-14.2); Red Blood Cell Count 2.89 M/mm3 (3.80-5.20); White Blood Cell Count 8.24 K/mm3 (4.00-11.30)
[2018-08-22 05:13] LABS: Albumin, Blood 2.7 g/dL (3.4-5.0); Albumin/Globulin Ratio 1.1 (0.8-1.8); Bilirubin, Total 0.4 mg/dL (0.1-1.0); Creatinine, Blood 1.52 mg/dL (0.40-1.00); Globulin, Blood 2.5 g/dL (2.2-4.0); Potassium, Blood 3.6 mmol/L (3.5-5.5); Total Protein, Blood 5.2 g/dL (6.4-8.2)
[2018-08-22] MEDS ORDERED: ISOMON20 PO (11:10)
[2018-08-22] MEDS ORDERED: LIDO700A20 TOP (11:10)
[2018-08-22] MEDS ORDERED: DELTASONE20 MG PO (11:11)
[2018-08-22] MEDS ORDERED: METO25ER PO (11:12)
[2018-08-22] MEDS ORDERED: SPIR25 PO (11:13)
[2018-08-22] MEDS ORDERED: DOCU100 PO (11:14)
[2018-08-22] MEDS ORDERED: BENZ100A PO (11:20)
[2018-08-22] MEDS ORDERED: Calcium Carbon500 M1 PO (11:22)
[2018-08-22] MEDS ORDERED: CALC.25 PO (11:22)
[2018-08-22] MEDS ORDERED: Humalog100 UNIT/1 SC (11:24)
[2018-08-22] MEDS ORDERED: GUAI600T33 PO ×2 (11:28→12:40)
[2018-08-22] MEDS ORDERED: MICO100S VAG (12:41)
[2018-08-22] MEDS ORDERED: ALBU3IS INH (12:43)
[2018-08-23 04:20] LABS: Bun/Creatinine Ratio 25.8 (12.0-20.0); Calcium, Blood 9.5 mg/dL (8.5-10.1); Creatinine, Blood 1.51 mg/dL (0.40-1.00); Potassium, Blood 3.7 mmol/L (3.5-5.5)
[2018-08-23 15:50] LABS: Albumin, Blood 2.9 g/dL (3.4-5.0); Anion Gap 10 mmol/L (6-16); Blood Urea Nitrogen 49 mg/dL (8-24); Bun/Creatinine Ratio 26.1 (12.0-20.0); CO2, Blood 39 mmol/L (21-32); Calcium, Blood 9.6 mg/dL (8.5-10.1); Chloride, Blood 82 mmol/L (98-108); Creatinine, Blood 1.88 mg/dL (0.40-1.00); Glomerular Filtration Rate 27 (60-); Glucose, Blood 335 mg/dL (70-99); Magnesium, Blood 1.9 mg/dL (1.6-2.4); Phosphorus, Blood 6.7 mg/dL (2.5-4.9); Potassium, Blood 4.2 mmol/L (3.5-5.5); Sodium, Blood 131 mmol/L (136-145); Troponin I 0.029 ng/mL (0.000-0.040)
[2018-08-23 15:56] LABS: BASOPHILS ABSOLUTE AUTO 0.02 K/mm3 (0.00-0.23); BASOPHILS PERCENT AUTO 0 % (0-2); EOSINOPHILS ABSOLUTE AUTO 0.02 K/mm3 (0.00-0.68); EOSINOPHILS PERCENT AUTO 0 % (0-6); Hemoglobin 10.7 g/dL (11.5-16.0); IMMATURE GRAN ABSOLUTE AUTO 0.12 K/mm3 (0.00-0.10); IMMATURE GRAN PERCENT AUTO 1 % (0-1); LYMPHOCYTES ABSOLUTE AUTO 0.52 K/mm3 (0.84-5.20); LYMPHOCYTES PERCENT AUTO 3 % (21-46); MONOCYTES ABSOLUTE AUTO 0.58 K/mm3 (0.16-1.47); MONOCYTES PERCENT AUTO 3 % (4-13); Mean Corpuscular HGB 31.4 pg (26.0-34.0); Mean Corpuscular HGB Conc 32.4 g/dL (31.5-36.5); Mean Corpuscular Volume 97 fL (80-100); Mean Platelet Volume 9.2 fL (9.1-12.4); NEUTROPHILS ABSOLUTE AUTO 17.79 K/mm3 (1.96-9.15); NEUTROPHILS PERCENT AUTO 94 % (41-73); Platelet Count 241 K/mm3 (150-400); RDW Coefficient Variation 14.4 % (11.7-14.2); RDW Standard Deviation 51.5 fL (35.1-46.3); Red Blood Cell Count 3.41 M/mm3 (3.80-5.20); White Blood Cell Count 19.05 K/mm3 (4.00-11.30)
[2018-08-24 08:32] LABS: Blood, Urine 1+ (Neg); Glucose Qualitative, Urine Neg (Neg); Ketones, Urine Neg (Neg); Leukocyte Esterase, Urine 1+ (Neg); Nitrite, Urine Neg (Neg); Protein, Urine 1+ (Neg); Urobilinogen, Urine NORM (Normal)
[2018-08-24 08:47] LABS: Appearance, Urine Hazy (Clear); Bacteria Rare /hpf; Bilirubin, Urine 1+ (Neg); Color, Urine Yellow (P-Yellow); Red Blood Cells, Urine 0-2 /hpf (0-2); Squamous Epithelial Cells Many /hpf (Few); White Blood Cells, Urine 0-2 /hpf (0-5)
[2018-08-25 04:34] LABS: Hematocrit 26.6 % (33.0-51.0); Hemoglobin 8.8 g/dL (11.5-16.0); Mean Corpuscular HGB 31.8 pg (26.0-34.0); Mean Corpuscular HGB Conc 33.1 g/dL (31.5-36.5); Mean Corpuscular Volume 96 fL (80-100); Mean Platelet Volume 9.6 fL (9.1-12.4); Platelet Count 181 K/mm3 (150-400); RDW Coefficient Variation 14.2 % (11.7-14.2); RDW Standard Deviation 50.1 fL (35.1-46.3); Red Blood Cell Count 2.77 M/mm3 (3.80-5.20); White Blood Cell Count 10.75 K/mm3 (4.00-11.30)
[2018-08-25 04:49] LABS: Bun/Creatinine Ratio 32.3 (12.0-20.0); Calcium, Blood 9.3 mg/dL (8.5-10.1); Creatinine, Blood 1.61 mg/dL (0.40-1.00); Potassium, Blood 3.7 mmol/L (3.5-5.5)
[2018-08-25 08:17] LABS: BAND PERCENT MAN 6 % (0-8); BASOPHILS PERCENT MAN 0 % (0-2); EOSINOPHILS PERCENT MAN 1 % (0-6); LYMPHOCYTES ABSOLUTE MAN 2.25 K/mm3 (0.84-5.20); LYMPHOCYTES PERCENT MAN 21 % (21-46); MONOCYTES ABSOLUTE MAN 0.32 K/mm3 (0.16-1.47); MONOCYTES PERCENT MAN 3 % (4-13); MYELOCYTE ABSOLUTE MAN 0.32 K/mm3 (0.00-0.00); MYELOCYTE PERCENT MAN 3 % (0-0); NEUTROPHILS ABSOLUTE MAN 7.74 K/mm3 (1.96-9.15); SEG NEUTROPHILS PERCENT MAN 66 % (41-73); TOTAL CELLS COUNTED 100
[2018-08-25] MEDS ORDERED: ISODIN20 PO (10:48)
== END 2018-08-25 12:43 | disposition home or self-care (01) | DRG 871 ==
LOC: ER 14:18 → PCU 14:19 → ICUW 18:28 → PCU 19:10 → ICUW 08-15 18:17 → PCU 08-15 21:52 → MEDS 08-17 14:53 → PCU 08-20 10:45
PROVIDERS: Emergency Medicine; Hospitalist; Internal Medicine; Nurse Practitioner Acute Care
PROC: 5A09457 Assistance with Respiratory Ventilation, 24-96 Consecutive Hours, Continuous Positive Airway Pressure (ICD-10-PCS; principal; 2018-08-14)
DX: A41.9 Sepsis, unspecified organism (principal); J18.9 Pneumonia, unspecified organism; I21.A1 Myocardial infarction type 2; J96.21 Acute and chronic respiratory failure with hypoxia; I50.23 Acute on chronic systolic (congestive) heart failure; J44.0 Chronic obstructive pulmonary disease with (acute) lower respiratory infection; J44.1 Chronic obstructive pulmonary disease with (acute) exacerbation; I13.0 Hypertensive heart and chronic kidney disease with heart failure and stage 1 through stage 4 chronic kidney disease, or unspecified chronic kidney disease; E87.1 Hypo-osmolality and hyponatremia; Z68.43 Body mass index [BMI] 50.0-59.9, adult; I95.9 Hypotension, unspecified; E11.40 Type 2 diabetes mellitus with diabetic neuropathy, unspecified; E11.22 Type 2 diabetes mellitus with diabetic chronic kidney disease; I48.91 Unspecified atrial fibrillation; Z99.81 Dependence on supplemental oxygen; E66.01 Morbid (severe) obesity due to excess calories; Y95 Nosocomial condition; B37.3 Candidiasis of vulva and vagina; R26.2 Difficulty in walking, not elsewhere classified; N18.3 Chronic kidney disease, stage 3 (moderate); R51 Headache; R55 Syncope and collapse; L27.0 Generalized skin eruption due to drugs and medicaments taken internally; T36.8X5A Adverse effect of other systemic antibiotics, initial encounter; Y92.239 Unspecified place in hospital as the place of occurrence of the external cause; R32 Unspecified urinary incontinence; Z86.718 Personal history of other venous thrombosis and embolism; Z79.899 Other long term (current) drug therapy; Z79.82 Long term (current) use of aspirin; Z79.4 Long term (current) use of insulin; Z88.8 Allergy status to other drugs, medicaments and biological substances; Z88.0 Allergy status to penicillin; Z88.5 Allergy status to narcotic agent; Z88.1 Allergy status to other antibiotic agents
CPT/HCPCS: 36415; 51703; 70450; 71045; 71046; 80048; 80053; 80069; 80202; 81001; 82803; 82947; 83605; 83690; 83735; 83880; 84145; 84484; 85014; 85018; 85025; 87040; 87086; 87205; 93005; 93010; 94640; 94660; 94761; 94762; 96374; 97110; 97116; 97162; 97166; 97530; 97535; 99285-25; C8929; G8978; G8979; G8987; G8988; J0696; J1956; J2405; J2920; J3010; J3370; J3475; J7030; J7050; J7120; Q9957

== ENCOUNTER 2018-10-05 07:08 | Observation (INO) | payer MEDICARE, OTHER ==
[~2018-10-05] VITALS: Ht 167.6 cm; Wt 113.4 kg
[~2018-10-05 07:08] MED LIST changes: +ACTEMRA162 MG/0.9 SC; +ALBU3IS INH; +ATOR40TA PO; +BENZ100A PO; +Calcium Carbon500 M1 PO; +DELTASONE20 MG PO; +Ferrous Sulfat325 M2 PO; +GUAI600T33 PO; +LIDO700A20 TOP; +MICO100S VAG; +Milk Of Ma400 MG/5 M PO; +OMEPRAZOLE MAGN20 MG PO; +Prilosec Otc20 MG PO; +SPIR25 PO
[2018-10-05 07:41] LABS: PO2 Arterial 99.2 mmHg (80-100); pH Blood Arterial 7.37 (7.35-7.45)
[2018-10-05 07:42] LABS: BASOPHILS ABSOLUTE AUTO 0.05 K/mm3 (0.00-0.23); BASOPHILS PERCENT AUTO 0 % (0-2); EOSINOPHILS ABSOLUTE AUTO 0.19 K/mm3 (0.00-0.68); EOSINOPHILS PERCENT AUTO 2 % (0-6); Hematocrit 30.8 % (33.0-51.0); Hemoglobin 9.8 g/dL (11.5-16.0); IMMATURE GRAN ABSOLUTE AUTO 0.07 K/mm3 (0.00-0.10); IMMATURE GRAN PERCENT AUTO 1 % (0-1); LYMPHOCYTES ABSOLUTE AUTO 1.72 K/mm3 (0.84-5.20); LYMPHOCYTES PERCENT AUTO 13 % (21-46); MONOCYTES ABSOLUTE AUTO 0.66 K/mm3 (0.16-1.47); MONOCYTES PERCENT AUTO 5 % (4-13); Mean Corpuscular HGB 30.5 pg (26.0-34.0); Mean Corpuscular HGB Conc 31.8 g/dL (31.5-36.5); Mean Corpuscular Volume 96 fL (80-100); Mean Platelet Volume 10.9 fL (9.1-12.4); NEUTROPHILS ABSOLUTE AUTO 10.19 K/mm3 (1.96-9.15); NEUTROPHILS PERCENT AUTO 79 % (41-73); Platelet Count 271 K/mm3 (150-400); RDW Coefficient Variation 15.4 % (11.7-14.2); RDW Standard Deviation 52.3 fL (35.1-46.3); Red Blood Cell Count 3.21 M/mm3 (3.80-5.20); White Blood Cell Count 12.88 K/mm3 (4.00-11.30)
[2018-10-05 07:51] LABS: International Normalized Ratio 1.27; Prothrombin Time Results 12.9 Sec (9.7-11.5)
[2018-10-05 07:57] LABS: Alanine Aminotransfer (ALT/SGP 12 U/L (12-78); Albumin, Blood 3.1 g/dL (3.4-5.0); Albumin/Globulin Ratio 0.9 (0.8-1.8); Alk Phos 92 U/L (50-136); Anion Gap 9 mmol/L (6-16); Aspartate Aminotrans (AST/SGOT 14 U/L (12-37); Bilirubin, Total 0.9 mg/dL (0.1-1.0); Blood Urea Nitrogen 34 mg/dL (8-24); Bun/Creatinine Ratio 18.3 (12.0-20.0); CO2, Blood 27 mmol/L (21-32); Chloride, Blood 94 mmol/L (98-108); Creatinine, Blood 1.86 mg/dL (0.40-1.00); Globulin, Blood 3.3 g/dL (2.2-4.0); Glomerular Filtration Rate 28 (60-); Glucose, Blood 145 mg/dL (70-99); Potassium, Blood 5.8 mmol/L (3.5-5.5); Sodium, Blood 130 mmol/L (136-145); Total Protein, Blood 6.4 g/dL (6.4-8.2); Troponin I <0.015 ng/mL (0.000-0.040)
[2018-10-05] MEDS ORDERED: INSULANPEN SC (08:18)
[2018-10-05] MEDS ORDERED: Humalog100 UNIT/1 SC (08:22)
[2018-10-05] MEDS ORDERED: Isosorbide Mono60 MG PO (08:24)
[2018-10-05] MEDS ORDERED: POTA10T PO (08:25)
[2018-10-05 08:43] LABS: Bilirubin, Urine Neg (Neg); Blood, Urine 3+ (Neg); Glucose Qualitative, Urine Neg (Neg); Ketones, Urine Neg (Neg); Leukocyte Esterase, Urine Neg (Neg); Nitrite, Urine Neg (Neg); Protein, Urine 1+ (Neg); Urobilinogen, Urine NORM (Normal)
[2018-10-05 08:50] LABS: Appearance, Urine Clear (Clear); Color, Urine Yellow (P-Yellow)
[2018-10-05 08:51] LABS: Bacteria Not Seen /hpf; Red Blood Cells, Urine 0-2 /hpf (0-2); Squamous Epithelial Cells Not Seen /hpf (Few); White Blood Cells, Urine Not Seen /hpf (0-5)
[2018-10-06] MEDS ORDERED: BUME1 PO (11:40)
[2018-10-06] MEDS ORDERED: ALPR.5 PO (11:40)
[2018-10-06] MEDS ORDERED: SERT25 PO (11:41)
== END 2018-10-06 16:34 ==
LOC: ER 07:08 → ERHOLD 07:09 → MEDS 17:59 → ENPENDDIS 10-06 11:29 → EDPENDDIS 10-06 11:29 → MEDS 10-06 16:34
PROVIDERS: Emergency Medicine
DX: I13.0 Hypertensive heart and chronic kidney disease with heart failure and stage 1 through stage 4 chronic kidney disease, or unspecified chronic kidney disease (principal); I50.22 Chronic systolic (congestive) heart failure; E11.22 Type 2 diabetes mellitus with diabetic chronic kidney disease; N18.3 Chronic kidney disease, stage 3 (moderate); E87.1 Hypo-osmolality and hyponatremia; I48.91 Unspecified atrial fibrillation; E66.01 Morbid (severe) obesity due to excess calories; R09.02 Hypoxemia; F41.0 Panic disorder [episodic paroxysmal anxiety]; Z88.0 Allergy status to penicillin; Z88.1 Allergy status to other antibiotic agents; Z88.5 Allergy status to narcotic agent; Z88.8 Allergy status to other drugs, medicaments and biological substances; Z79.899 Other long term (current) drug therapy
CPT/HCPCS: 36415; 36600; 51702; 71045; 80053; 81001; 82803; 82947; 83605; 83880; 84484; 85025; 85610; 93005; 93010; 94640; 94660; 94760; 96374; 96375; 99285-25; G0378; J0456; J0696; J1940; J2060; J2930; J7050

== ENCOUNTER 2018-10-20 09:26 | Inpatient (IN) | payer MEDICARE, OTHER ==
[~2018-10-20] VITALS: Ht 157.5 cm; Wt 120.0 kg
[~2018-10-20 09:26] MED LIST changes: +ALPR.5 PO; +BUME1 PO; +Isosorbide Mono60 MG PO; +SERT25 PO
[2018-10-20] MEDS ORDERED: METO2.5 PO (09:32)
[2018-10-20] MEDS ORDERED: TUBERSOL5 TUB UNIT ID (09:34)
[2018-10-20] MEDS ORDERED: SERT50 PO (09:38)
[2018-10-20] MEDS ORDERED: ELIQUIS5 MG PO (09:40)
[2018-10-20] MEDS ORDERED: POTA20PAC PO (09:42)
[2018-10-20 10:06] LABS: BASOPHILS ABSOLUTE AUTO 0.07 K/mm3 (0.00-0.23); BASOPHILS PERCENT AUTO 0 % (0-2); EOSINOPHILS ABSOLUTE AUTO 0.23 K/mm3 (0.00-0.68); EOSINOPHILS PERCENT AUTO 1 % (0-6); Hematocrit 30.7 % (33.0-51.0); Hemoglobin 9.7 g/dL (11.5-16.0); IMMATURE GRAN ABSOLUTE AUTO 0.11 K/mm3 (0.00-0.10); IMMATURE GRAN PERCENT AUTO 1 % (0-1); LYMPHOCYTES ABSOLUTE AUTO 1.69 K/mm3 (0.84-5.20); LYMPHOCYTES PERCENT AUTO 9 % (21-46); MONOCYTES ABSOLUTE AUTO 0.78 K/mm3 (0.16-1.47); MONOCYTES PERCENT AUTO 4 % (4-13); Mean Corpuscular HGB 30.7 pg (26.0-34.0); Mean Corpuscular HGB Conc 31.6 g/dL (31.5-36.5); Mean Corpuscular Volume 97 fL (80-100); Mean Platelet Volume 10.2 fL (9.1-12.4); NEUTROPHILS ABSOLUTE AUTO 15.13 K/mm3 (1.96-9.15); NEUTROPHILS PERCENT AUTO 84 % (41-73); Platelet Count 332 K/mm3 (150-400); RDW Coefficient Variation 15.8 % (11.7-14.2); RDW Standard Deviation 56.4 fL (35.1-46.3); Red Blood Cell Count 3.16 M/mm3 (3.80-5.20); White Blood Cell Count 18.01 K/mm3 (4.00-11.30)
[2018-10-20 10:25] LABS: Alanine Aminotransfer (ALT/SGP 14 U/L (12-78); Albumin, Blood 2.8 g/dL (3.4-5.0); Albumin/Globulin Ratio 0.7 (0.8-1.8); Alk Phos 111 U/L (50-136); Anion Gap 5 mmol/L (6-16); Aspartate Aminotrans (AST/SGOT 15 U/L (12-37); Bilirubin, Total 0.9 mg/dL (0.1-1.0); Blood Urea Nitrogen 57 mg/dL (8-24); Bun/Creatinine Ratio 29.5 (12.0-20.0); CO2, Blood 33 mmol/L (21-32); Calcium, Blood 9.4 mg/dL (8.5-10.1); Chloride, Blood 94 mmol/L (98-108); Creatinine, Blood 1.93 mg/dL (0.40-1.00); Globulin, Blood 4.2 g/dL (2.2-4.0); Glomerular Filtration Rate 27 (60-); Glucose, Blood 280 mg/dL (70-99); Potassium, Blood 5.7 mmol/L (3.5-5.5); Sodium, Blood 132 mmol/L (136-145); Troponin I <0.015 ng/mL (0.000-0.040)
[2018-10-20 16:12] LABS: Source, Urine Catheter
--- NOTE | 2018-10-20 16:25 | NUR ---
PT ADMITTED TO UNIT VIA PCU ADMIT THAT WAS CHANGED DUE TO PATIENT STATUS ON ARRIVAL TO PCU UNIT. O2 SAT ADEQUATE BUT BREATHING INEFFECTIVE, PT PLACED ON BIPAP /6 AT 35%. PT HAS 22G RT HAND IV ONLY, PICC LINE ORDERED BY DR. RODRIGUEZ, RN YI IN ROOM TO PLACE PICC LINE. B/P SYSTOLICALLY IN 60'S, STARTED NS BOLUS PER VERBAL ORDER FROM DR. RODRIGUEZ. RESULTS, BOLUS BEGAN RAISING B/P TO 80'S-90'S. LEVOPHED ORDERED AND WILL START SOON PICC LINE PLACEMENT VERFIED, SEE FLOW SHEET. PLACED TEMP PURDY CATH. OBTAINED URINE AND STOOL SAMPLES FOR LAB PER PROTOCOL.
[2018-10-20 16:27] LABS: Appearance, Urine Turbid (Clear); Bilirubin, Urine Neg (Neg); Blood, Urine 5+ (Neg); Color, Urine Yellow (P-Yellow); Glucose Qualitative, Urine Neg (Neg); Ketones, Urine 1+ (Neg); Leukocyte Esterase, Urine 3+ (Neg); Nitrite, Urine Pos (Neg); Protein, Urine 3+ (Neg); Specific Gravity, Urine 1.015 (1.003-1.022); Urobilinogen, Urine NORM (Normal)
[2018-10-20 16:57] LABS: White Blood Cells, Urine TNTC /hpf (0-5)
[2018-10-20 16:59] LABS: Bacteria Few /hpf; Squamous Epithelial Cells Not Seen /hpf (Few)
--- NOTE | 2018-10-20 18:41 | NUR ---
Shift Summary: Patient is currently on BIpap at 12/6 FiO2 25%. Running Hayden-synephrine at 70 mcg/min. POC per Dr Rodriguez, titrate Hayden-synephrine up to 200 mcg/min then add levophed if needed. Additionally, cardizem drip avaliable for hr continually trending above 120 bpm. Gao draining to gravity, pt has colostomy bag in place. Will give report to TERESA DICKERSON.
--- NOTE | 2018-10-20 20:34 | NUR ---
ASSUMED CARE OF PT AT 1900. REPORT PARTIALLY RECEIVED AT BEDSIDE. PT PRESENTS INITIALLY IN ROOM ICU 12 AND SUBSEQUENTLY MOVED TO ROOM ICU 6 SECONDARY TO PT CONSOLIDATION. PT TOLERATES THE TRANSFER WELL. DOES HAVE SOME INCREASE IN ANXIOUSNESS. ARNOLDO INITIALLY AT 70 MCG'S AND HAS BEEN TITRATED DOWN TO [address] ZACARIAS CONCERNING IV FLUIDS AND STATUS. ORDERS RECEIVED. PT HAS MINIMAL URINE OUTPUT. WILL REVIEW CHART AND PLAN OF CARE. INFORMED DR ZACARIAS THAT CARDIAZEM DRIP IS TO BE STARTED SOON AVAILABLE FROM PHARMACY.
--- NOTE | 2018-10-21 | NUR ---
PT REMAINS IN BED WITH BIPAP MASK IN PLACE. PT HAS REQUESTED FULL FACE MASK, AND NO HEAT TO BE USED FOR BIPAP. THIS DONE FOR PT WHEREAS SHE IS TOLERATING THIS WELL. HAVE NEEDED TO PLACE PT ON CARDIAZEM DRIP EARLIER IN EVENING FOR HEART RATE MAINTAINING > 120'S. HAVE BEEN TITRATING TO AFFECT. NEOSYNEPHERINE CONTINUES TO MAINTAIN BLOOD PRESSURES MAP > 60.
--- NOTE | 2018-10-21 03:00 | NUR ---
HAVE RELEASED SOFT WRIST RESTRAINTS AND DISCONTINUED ORDER. PT VERBALLY AGREES NOT TO PULL AT LINES OR BIPAP MASK. HAS DEMONSTRATED A MUCH IMPROVED COGNITIVE STATE. HAS TAKEN MEDS WITH THICKENED WATER. NO COUGHING NOTED WITH SWALLOW. WILL CONTINUE TO MONITOR PT.
[2018-10-21 04:05] LABS: Hematocrit 27.7 % (33.0-51.0); Hemoglobin 8.7 g/dL (11.5-16.0); Mean Corpuscular HGB 30.6 pg (26.0-34.0); Mean Corpuscular HGB Conc 31.4 g/dL (31.5-36.5); Mean Corpuscular Volume 98 fL (80-100); Mean Platelet Volume 10.1 fL (9.1-12.4); Platelet Count 304 K/mm3 (150-400); RDW Standard Deviation 56.7 fL (35.1-46.3); Red Blood Cell Count 2.84 M/mm3 (3.80-5.20); White Blood Cell Count 16.58 K/mm3 (4.00-11.30)
[2018-10-21 04:28] LABS: Bun/Creatinine Ratio 28.9 (12.0-20.0); Calcium, Blood 8.4 mg/dL (8.5-10.1); Creatinine, Blood 2.04 mg/dL (0.40-1.00); Magnesium, Blood 1.7 mg/dL (1.6-2.4); Phosphorus, Blood 4.2 mg/dL (2.5-4.9); Potassium, Blood 5.2 mmol/L (3.5-5.5)
[2018-10-21 04:31] LABS: Thyroid Stimulating Hormone 4.98 uIU/mL (0.360-4.800)
[2018-10-21 05:14] LABS: PCO2 Arterial 46.7 mmHg (35-45); PO2 Arterial 72.1 mmHg (80-100); pH Blood Arterial 7.44 (7.35-7.45)
--- NOTE | 2018-10-21 06:11 | NUR ---
PT CONTINUES WITHOUT NEED OF RESTRAINTS. HAS NOT PULLED AT LINES OR MASK. PICC LINE DRESSING CHANGE HAS BEEN DONE. PT REMAINS WITH POOR URINE OUTPUT. SEE I/O FLOWSHEET FOR DETAILS. TOLERATES Q 2 HOUR TURNS IN BED. WITH DRINKS OF WATER HAVE PLACED PT ON 4 L/M O2 PER OXYIMIZER. IS ABLE TO MAINTAIN > 90 PERCENT SATURATIONS. PT CURRENTLY BACK TO BIPAP. IS TOLERATING THIS WELL. CARDIAZEM DRIP AT 5 MG / HOUR. NEOSYNEPHERINE AT 55 MCG'S. WILL CONTINUE TO MONITOR PT, AND WILL REPORT OFF TO ONCOMING RN.
--- NOTE | 2018-10-21 08:25 | NUR ---
RECEIVED REPORT AND ASSUMED CARE OF PATIENT. SHE REQUESTS A BREAK FOR WATER, SHE STATES THAT SHE IF FEELING VERY SOB AND WOULD LIKE TO SKIP BREAKFAST TO GET BACK ON BIPAP. BIPAP SETTINGS 12/6 WITH FIO2 25%, RR 26 AT THIS TIME, O2 SAT 97%. ARNOLDO-SYNEPHRINE DRIP RUNNING AT 60 MCG/MIN AND CARDIZEM RUNNING AT 5 ML/HOUR. NS RUNNING AT 100 ML/HR. COLOSTOMY BAG IN PLACE DRAINING BROWN LIQUID/SOFT STOOL, PURDY CATH DRAINING YELLOW, CLOUDY URINE WITH SOME SEDIMENT NOTED IN BAG, BOTH TO GRAVITY DRAIN.
--- NOTE | 2018-10-21 09:57 | NUR ---
I was introduced to patient by the attending nurse. Patient was sleepy but perked up as I got close. Patient was on a respitory system and struggled to communicate. Pt. was very kind and smiled often and yet expressed a concern that she did not have very much longer to live.I was able to encourage pt.in her own courage to keep fighting and her use of breath to speak of hope and of her Jainism rich. Although I am not a fruit grader operator, pt. was delighted to have me say a prayer for her and so I provided prayer. Pt. expressed gratitude for the prayer and showed signs of an elevated mood.
--- NOTE | 2018-10-21 11:58 | NUR ---
CALLED DR. ZACARIAS TO VERIFY IF HE WANTED THE LASIX GIVEN WITH PATIENT DOWNWARD B/P TREND. HE SAID TO HOLD THE LASIX UNTIL B/P IS STABILIZED.
--- NOTE | 2018-10-21 13:13 | NUR ---
DR. ZACARIAS/SHORTNESS OF BREATH PT COMPLAINING OF NOT BEING ABLE TO BREATHE. PT APPEARS TO BE WORKING HARD, HOWEVER SATS MAINTAINING MID 90'S. RESP RATE 40'S. CALL TO DR. ZACARIAS. ORDERS RECEIVED TO INCREASE BIPAP PRESSURES TO 15/10 AND GIVE ATROVENT NEBS PRN. RT NOTIFIED, HERE TO MAKE CHANGES. PT'S HR HAS BEEN TRENDING UP - CARDIZEM IS INFUSING CURRENTLY AT 10MG/HR. BP LABILE - ARNOLDO CURRENTLY AT 85MCG/MIN. WILL CONTINUE TO MONITOR CLOSELY.
--- NOTE | 2018-10-21 15:25 | NUR ---
Minimal visit with minnie. To somulent and fatigued. Review with nursing and SS. The Patient [facility]. She is holding on until that time. Will see if her daughter can get them here earlier. Minnie and I have had a open discussion about hospice and ER physician spoke with her primary about hospice and it was agreed on a consult to start hospice. Will follow up to see if Minnie denied or consult was no completed. In the past she has expressed great fear and stress at her air hunger. She has expressed knowing she is failing. She has a strong goal of wanting to see her family. Will try to facilitate facetiem or interaction in case she declines further.
--- NOTE | 2018-10-21 18:29 | NUR ---
PT HAVING LABILE B/P AT THIS TIME, ARNOLDO-SYNEPHRINE RUNNING AT 150 MCG/MIN AT THIS TIME, CARDIZEM IS AT 10 MG/HR. SYSTOLIC B/P RUNNING BETWEEN 60-110'S AT THIS TIME.
--- NOTE | 2018-10-21 19:23 | NUR ---
RESP DISTRESS/DR. ZACARIAS PT COMPLAINING OF FEELING SHORT OF BREATH, STATING "I JUST WANT THIS TO BE OVER QUICK". DISCUSSED WITH PT WHAT STOPPING CURRENT TREATMENT WOULD MEAN. PT STATES, "I KNOW". UNSURE OF PT'S COMPETENCY WITH DECISION MAKING AT THIS POINT. CALL TO PT'S DAUGHTER, ALEXEI, TO DISCUSS CURRENT CONDITION. DAUGHTER STATES PT HAS ALWAYS STATED SHE WANTS EVERYTHING DONE, NO MATTER WHAT. CALL TO DR. ZACARIAS. ORDERS OBTAINED FOR ABG, INCREASE BIPAP PRESSURES PER RT DISCRETION, START PRECEDEX, AND USE LEVOPHED NEEDED FOR BP CONTROL. RT JEANNIE NOTIFIED, REPORT GIVEN TO NOC RN'S TO ASSUME CARE.
--- NOTE | 2018-10-21 19:33 | NUR ---
Pt having increasing dyspnea and aggitation. Nursing has contacted family with change in status. Nursing notified Dr. Alejo of changes and orders give. Pt expressing wanting to stop. This service writer has experince minnie many times waver when her dyspnea nd fear escalte. Review with staff Kimberly past expressions of struggling to make a decision. Review with staff Minnie may not have ability at this time to make a clear decision. Her daughter is of poor health and take medication. Suggested goal is to reduce suffering and provide care. Pt at this time remains a full code.
[2018-10-21 19:44] LABS: PCO2 Arterial 46.7 mmHg (35-45); PO2 Arterial 78.5 mmHg (80-100); pH Blood Arterial 7.36 (7.35-7.45)
--- NOTE | 2018-10-21 19:52 | NUR ---
CARE ASSUMED REPORT RECEIVED FROM DAY SHIFT RN. PT ANXIOUS, TACHYPNEIC, HYPOTENSIVE. NEOSYNEPHRINE TITRATED UP, LEVOPHED STARTED, PRECEDEX STARTED PER DR. ZACARIAS ORDER. ABG COMPLETED BY RT JEANNIE. BIPAP SETTINGS TITRATED TO 18/12 BY RT JEANNIE. FIO2 35%. 02 SAT IN 90'. PT STATES, "I DON'T WANT TO KEEP GOING." DAUGHTER, ALEXEI AT BEDSIDE FOR DISCUSSION WITH PATIENT.
--- NOTE | 2018-10-21 20:09 | NUR ---
PT'S DAUGHTER ALEXEI TO PT'S BEDSIDE AND HAS BEEN SPEAKING WITH PT. MAYDA IS NOW TALKING WITH DR. ZACARIAS ON THE PHONE.
--- NOTE | 2018-10-21 20:17 | NUR ---
SPOKE WITH DR. ZACARIAS AFTER DR. ZACARIAS SPOKE WITH DAUGHTER ALEXEI. NEW ORDERS TO CHANGE PT STATUS TO COMFORT MEASURES. BEGIN PALLATIVE CARE ORDERS; KEEP PT ON BI-PAP FOR COMFORT; MORPHINE 1-10mg Q15' PRN FOR DISTRESS; ATIVAN 1-4mg Q15' PRN FOR DISTRESS.
--- NOTE | 2018-10-21 20:30 | NUR ---
MARIA ELENA LAZO OCCUPATIONAL THERAPIST ASSISTANT NOTIFIED OF PT'S ALLERGY TO MORPHINE AND SENSITIVITY TO LORAZEPAM. NEW ORDER FOR FENTANYL AND DECREASED LORAZEPAM DOSE.
--- NOTE | 2018-10-21 21:00 | NUR ---
UPDATE AFTER ADMINISTRATION OF FENTANYL PT RELAXES AND WHEN PROMPTED ABOUT PAIN STATES, "I FEEL GOOD. I WISH YOU WOULD LEAVE ME ALONE." DAUGHTER CONTINUES TO BE AT BEDSIDE. WILL CONTINUE TO MONITOR.
--- NOTE | 2018-10-21 21:26 | NUR ---
2044 gtts DC'D (CARDIZEM, LEVOPHED, ARNOLDO-SYNEPHRINE, PRECEDEX, AND TKO NS). PT'S DAUGHTER ALEXEI AT BEDSIDE WITH SERVICE DOG.
--- NOTE | 2018-10-21 21:44 | NUR ---
AT BEDSIDE WITH DAUGHTER AND PATIENT
--- NOTE | 2018-10-21 22:50 | NUR ---
UPDATE FOAM DISPENSER VISIT COMPLETE AT THIS TIME. DAUGHTER REPORTS SHE IS GOING HOME TO SLEEP AND TAKE HER MEDICINE AND WILL BE BACK " SOON SHE CAN WAKE UP." PT REMAINS QUIET, DENIES PAIN OR NEEDS. BIPAP CONTINUES TO BE IN PLACE.
--- NOTE | 2018-10-21 22:51 | NUR ---
Call back - Pt and daughter were present. Daughter provided space to reflect on the pt's life and their relationship together. Pt coherent and nods ocassionally during conversation. She appears to be aware of her surroundings. Pt asked what she values most. She points to daughter, who became tearful. Daughter has no family close besides the pt. Brother lives in [place], but is not supportive. Daughter able to verbalize her thoughts on her mother. "I could be a few days or it could happen at any time." Verbal prayer was offered. Tactile presence also supplied to the pt.
--- NOTE | 2018-10-21 23:45 | NUR ---
REPORT TO TUAN PANG TO ASSUME CARE
--- NOTE | 2018-10-21 23:45 | NUR ---
ASSUMED PT CARE RECEIVED REPORT FROM TUAN LAWRENCE. PT IS SITTING UPRIGHT IN BED WITH BIPAP ON. COMFORTABLE AT THIS TIME.
--- NOTE | 2018-10-22 00:17 | NUR ---
UPDATE ON NURSE ROUNDING, PT AWAKE IN BED STATING, "WHERE IS MY DAUGHTER." PT UPDATED AND AGREEABLE. DENIES PAIN, DENIES NEEDS. PT MAKES SIGNAL WITH HAND FOR RN TO LEAVE ROOM. WHEN CLARIFIED THAT SHE WANTS NURSE TO LEAVE THE ROOM, PT STATES, "YES." PRIVACY PROVIDED.
--- NOTE | 2018-10-22 06:18 | NUR ---
WHILE HELPING RN WITH PT, PT STATED, "I CAN'T BREATH". PT SHOOK HEAD WHEN OFFERED TO TAKE BIPAP OFF TO PLACE N/C SO PT COULD SPEAK. DID NOT REMOVE BIPAP PER PT REQUEST. PT OFFERED ANOTHER DOSE OF FENTANYL AND PT STATED, "I'LL TRY IT". PT REMINDED OF FIRST DOSE AT START OF SHIFT TO WHICH PT STATED, "OKAY". FENTANYL 50mcg IVP GIVEN. PT RESTING MORE QUIETLY.
--- NOTE | 2018-10-22 07:19 | NUR ---
END OF SHIFT SUMMARY PT HAS REMAINED ON COMFORT CARE T/O SHIFT. PT DECLINES REPOSITIONING, WELL DECLINES COMFORT MEDS T/O SHIFT. PT MEDICATED WITH FENTANYL PER ORDERS AT END OF SHIFT D/T DYSPNEA. CONTINUES TO WEAR BIPAP FOR COMFORT.
--- NOTE | 2018-10-22 07:33 | NUR ---
PATIENT REFUSES PERSONAL CARE TO INCLUDE TURNING; FACE WASH, ETC. REMAINS ON BIPAP MACHINE; EYES OPEN WHEN RN WALKS INTO ROOM. ALLOWED RN TO OPEN BLINDS.
--- NOTE | 2018-10-22 09:45 | NUR ---
URINE CULTURE CAME BACK SHOWING PATIENT POSITIVE FOR (ESBL)--ESCHERICHIA COLI; PLACED IN CONTACT ISOLATION.
--- NOTE | 2018-10-22 10:00 | NUR ---
DAUGHTER ARRIVED; SITTING AT BEDSIDE; PATIENT SLEEPING AND NOT WANTING TO BE DISTURBED; REFUSES ANY KIND OF CARE; NO PAIN MED. GIVEN D/T SLEEPING COMFORTABLY; BIPAP IN PLACE.
--- NOTE | 2018-10-22 10:56 | NUR ---
pt on bipap with duaghter at side less accessory use and no frequent repositioning.
--- NOTE | 2018-10-22 16:30 | NUR ---
ALLOWS ONLY PAIN MEDS. TO BE GIVEN; REFUSING TO LET RN CLEAN MOUTH/FACE, ETC.; REFUSING SIPS OF WATER, ETC. HOB AND FOB ADJUSTED SLIGHTLY TO HELP REDUCE PRESSURE TO BUTTOCKS/COCCYX, ETC; PATIENT WILL NOT ALLOW STAFF TO TURN HER.
--- NOTE | 2018-10-22 18:00 | NUR ---
SUMMARY: NO CHANGES; REMAINS DNR AND COMFORT CARE STATUS. DAUGHTER VISITING FOR HOURS AT A TIME (IN/OUT); SUPPORTIVE BUT PATIENT REFUSING TO ALLOW ANYONE TO TURN/REPOSITION HER (RN ADJUSTING HOB AND FOB JUST FOR CHANGE); REFUSES BATH, ORAL CARE, BACK RUB, ETC; WILL HOLD R HAND UP AND WAVE PEOPLE AWAY. FENTANYL 50MCG IVT X 4 T/O PAST 12 HOURS; PATIENT APPEARED RELAXED MOST OF SHIFT.
--- NOTE | 2018-10-22 19:00 | NUR ---
[place] of Care: Patient c/o pain just before shift change, RN day shift gave prn fentanyl. Now appears calm, comfortable, sleeping. BiPAP in place for comfort with work of breathing. Plan to keep BiPAP on as patient tolerates/request. Will continue monitor for pain and comfort. Will offer repositioning, oral care, skin care, but reported from day shift RN that patient frequently refuses cares. PICC line patent and intact. Colostomy appliance shows very scant amount of leaking (appears old/dry), will change appliance early this shift.
--- NOTE | 2018-10-23 00:07 | NUR ---
Colostomy Appliance: Colostomy Appliance changed at this time. Stoma appears wnl. Patient medicated with prn Zofran at this time per c/o nausea, will monitor for effect. Patient refusing perineal/cath care so far this shift. Refusing repositioning at this time, states to be comfortable and wished to remain supine with HOB elevated. Denies pain at this time.
--- NOTE | 2018-10-23 05:53 | NUR ---
Shift Summary: Patient slept well throughout majority of shift. C/o pain effectively managed with prn fentanyl 50mcg doses. X2 c/o nausea this shift, effectively managed with prn Zofran 4mg doses, order received per Dr. Connors. Patient refusing repositioning, skin care, oral care, perineal care throughout most of shift. Wished to remain supine with HOB elevated, and wished to leave BiPAP mask in place for comfort. BiPAP pressures decreased from 18/12 to 12/8 per RT Meagan, patient remains calm/comfortable on new settings, O2-93% with 4L bleed in. PICC line remains patent and intact. Gao cath patent and intact, drain clear yellow urine. Will continue to monitor until report to day shift RN.
--- NOTE | 2018-10-23 07:30 | NUR ---
ASSUMED CARE OF PATIENT; SEE COMFORT CARE NOTES FOR DETAILS OF TX/SX'S. [ATOENT AT 90 DEGREES AND SIITING UPRIGHT IN BED; HEAD LEANING FORWARD AND ON BIPAP PER SAME SETTINGS. PURDY DRAINING FAIR AMOUNT OF MED. YELLOW URINE. PATIENT CONT. TO REFUSE CARE; IS ABLE TO USE CALL LIGHT AND INFORM STAFF WHEN SHE IS PAINFUL. SWELLING TO ALL EXTREM.; RN ENCOURAGED PATIENT TO ALLOW PILLOWS TO ELEVATE/SUPPORT EXTREM. APPEARS SOMEWHAT ANXIOUS AND PAINFUL; WILL MEDICATE WITH FENTANYL AND ATIVAN NEEDED.
--- NOTE | 2018-10-23 09:30 | NUR ---
DAUGHTER CALLED; UNABLE TO VISIT PATIENT D/T CAR PROBLEMS; PARTS NOT AVAILABLE Thursday. WANTS STAFF TO CALL IF/WHEN PATIENTS STATUS BEGINS DECLINING MOR SIGNIFICANTLY AND SHE WILL FIND A RIDE TO BRING HER TO THE HOSPITAL.
--- NOTE | 2018-10-23 09:58 | NUR ---
Pt is sitting up in bed. She appears drowsy, but oriented X2. She reports 9/10 pain, visibly hungry for air. She reports anxiety and nausea. Reviewed medications, call to Dr. Sanchez for new comfort medication orders. Orders placed, reviewed with nursing. Nurse to medicate for symptoms. Will remain available.
--- NOTE | 2018-10-23 18:00 | NUR ---
SUMMARY: REQUIRING LARGER DOSES OF FENTANYL (100MCG) TO HELP CALM PATIENT. PALLIATIVE CARE NURSE WAS HERE IN MORNING AND UPDATED COMFORT CARE ORDERS/MEDS. PATIENT TOLERATING SIPS OF WATER; IN FACT REQUESTING WATER. OFF BIPAP MID MORNING AND HAS WANTED TO REMAIN ON OXYMIZER (4L). WILL REPORT TO ONCOMING RN.
--- NOTE | 2018-10-23 19:00 | NUR ---
[place] of Care: Patient drowsy but responds to verbal stimuli. C/o sever nausea at shift change, prn zofran given with good effect noted. Prn fentanyl also given at shift change for c/o general body aches/pain, with good effect noted. Currently on nasal oxymizer, denies dyspnea or SOB. Allowed staff to reposition and perform skin/perineal care. Will continue to monitor for pain and comfort, and given prn medications as indicated.
--- NOTE | 2018-10-24 06:22 | NUR ---
Shift Summary: Patient slept on/off throughout shift. PRN fentanyl 100mcg doses effective to manage pain. Also gave prn Ativan and Zofran with good effect noted. Accepted more cares this shift, allowing repositioning q2hr, and accepted perineal/cath care. Patient drowsy, but still able to voice needs. Sleeping at this time. Will continue to monitor for pain, comfort, safety.
--- NOTE | 2018-10-24 13:54 | NUR ---
PATIENT TRANSFER THE PATIET WAS TRANSFERED TO THE [facility] FROM ICU #6 TO [facility] FLOOR ROOM # 335. THE PATIENT IS A COMFORT CARE PATIENT. PATIENT REPORT WAS RECIEVED FRON ICU NURSE MYRIAM. THE PATIENT IS RESTING AT THIS TIE, WILL CONTINUE TO MONITOR.
--- NOTE | 2018-10-24 16:16 | NUR ---
Transfer Transferred pt at 1230. Medicated prior for air hunger and pt appeared comfortable and denied any need for anything at time of transfer. Pt still on oxymizer 8L at transfer. Breathing appears less labored. Reports improved breathing. Denies any pain. Pt completely bathed, oral care complete, cath care complete, and linens changed before transfer. Report given to Wilmer DICKERSON on medical floor. Pt transferred with belongings and meds.
--- NOTE | 2018-10-24 17:54 | NUR ---
SHIFT SUMMARY THE PATIENT TRANSFERRED TO THE MED FLOOR FROM ICU A COMFORT CARE PATIENT, NPO AND WITH PRN MEDS. THE PATIENT HAS BEEN GIVEN PRN PING X2 SINCE BEING ON THE FLOOR ALSO ATROPINE TO HELP WITH MOSITURE. THE PATIENT SEEM TO BE RESTING AT THIS TIME, WILL CONTINUE TO MONITOR.
--- NOTE | 2018-10-24 22:07 | NUR ---
2114 Pt flutters eyes to verbal stimuli, reposotioned to left side. Pt has generalized pitting edema. Oral care given, medicated with roxicodone 20mg for discomfort. Remains on 10 Liters O2 via oximizer. In islolation for ESBL in the urine. Will continue to monitor.
--- NOTE | 2018-10-25 07:35 | NUR ---
Pt has been quiet with some light moaning on and off, medicated x2 for pain with roxicodone, atropine drops x1. Pt would flutter eye lids at beginning of shift but otherwise unresponsive. Went into room at 0524 and pt very pale with agonal breathing. Pt was pronounced at 0527. Daughter Divya Brown notified. She is unable to come into see mother, has no car, Taxi was offered, she declined. Daughter is unsure what to do, which mortuary to choose, she decided to go with the mortuary awning craftsperson. Belongings in bag at bedside. Charge nurse and engine repair supervisor notified of patient passing. Dr. Connors notified of pt passing. Report to RN on day shift. Awaiting pt pickup from [facility].
== END 2018-10-25 05:27 | DRG 871 ==
LOC: ER 09:26 → ERHOLD 13:13 → ICUE 13:13 → PCU 14:13 → ICUW 14:42 → ICUE 14:48 → MEDS 10-24 13:30
PROVIDERS: Emergency Medicine; Internal Medicine Critical Care Medicine; ADMIT Internal Medicine
PROC: 02HV33Z Insertion of Infusion Device into Superior Vena Cava, Percutaneous Approach (ICD-10-PCS; principal; 2018-10-20)
PROC: 3E033XZ Introduction of Vasopressor into Peripheral Vein, Percutaneous Approach (ICD-10-PCS; 2018-10-20)
PROC: 5A09557 Assistance with Respiratory Ventilation, Greater than 96 Consecutive Hours, Continuous Positive Airway Pressure (ICD-10-PCS; 2018-10-20)
DX: A41.51 Sepsis due to Escherichia coli [E. coli] (principal); R65.21 Severe sepsis with septic shock; J96.21 Acute and chronic respiratory failure with hypoxia; I50.23 Acute on chronic systolic (congestive) heart failure; I13.0 Hypertensive heart and chronic kidney disease with heart failure and stage 1 through stage 4 chronic kidney disease, or unspecified chronic kidney disease; N18.4 Chronic kidney disease, stage 4 (severe); N17.9 Acute kidney failure, unspecified; Z68.42 Body mass index [BMI] 45.0-49.9, adult; E66.01 Morbid (severe) obesity due to excess calories; Z51.5 Encounter for palliative care; E11.22 Type 2 diabetes mellitus with diabetic chronic kidney disease; I48.2 Chronic atrial fibrillation; E87.5 Hyperkalemia; J44.9 Chronic obstructive pulmonary disease, unspecified; Z79.4 Long term (current) use of insulin
CPT/HCPCS: 36415; 36569; 36600; 51703; 71045; 80048; 80053; 81001; 82330; 82533; 82803; 82947; 83605; 83735; 83880; 84100; 84145; 84443; 84484; 85025; 85027; 87040; 87077; 87086; 87186; 87493; 93005; 93010; 94640; 94660; 96365; 96366; 96368; 96375; 99285-25; C1751; C1769; J0456; J0696; J2060; J2370; J2405; J3010; J7030; J7040; J7050; J7060